=== PATIENT | female | born 1950 | race Caucasian/White ===

== ENCOUNTER → 2016-06-28 | Outpatient (CLI) | payer MEDICARE, OTHER ==
[~2016-06-28] MED LIST: ALPRAZOLAM0.5 MG PO; ASPIR 8181 MG PO; B-121000 MCG PO; CELEBREX200 MG PO; CELEXA40 MG PO; COLACE 100MG C100 MG PO; DEMADEX20 MG PO; DITROPAN 5 MG TA5 MG PO; ELIQUIS2.5 MG PO; FERREX PO; HYDRALAZINE HCL50 MG PO; IRON; ISOSORBIDE MON120 MG PO; KLOR-CON M2020 MEQ PO; LISINOPRIL40 MG PO; MAGNESIUM400 MG PO; METHOCARBAMOL500 MG PO; METOCLOPRAMIDE10 MG PO; METOPROLOL TART50 MG PO; MONTELUKAST SOD10 MG PO; NEURONTIN 300300 MG PO; NITROGLYCERIN0.4 MG SL; NORVASC10 MG PO; OXYCODONE HCL10 MG PO; OXYCODONE HCL15 MG PO; PLAVIX 75 MG TA75 MG PO; RANITIDINE HCL150 MG PO; SYNTHROID88 MCG PO; TEMAZEPAM30 MG PO; TYLENOL ARTHRITIS PO; VIT D PO; ZETIA10 MG PO
== END ==
LOC: HEART 5 09:00
DX: R07.9 Chest pain, unspecified (principal); F17.200 Nicotine dependence, unspecified, uncomplicated; I10 Essential (primary) hypertension; I08.1 Rheumatic disorders of both mitral and tricuspid valves
CPT/HCPCS: 78452; 93306; A9502; J2785

== ENCOUNTER → 2016-07-20 | Outpatient (CLI) | payer MEDICARE, OTHER ==
[2016-07-20 11:24] LABS: HEMOGLOBIN 12.3 gm/dl (12.3-15.3); RED BLOOD COUNT 3.88 M/UL (4.00-5.10)
[2016-07-20 11:39] LABS: BUN/CREATININE RATIO 11 (0-10)
== END ==
LOC: OPSV2 10:30
PROVIDERS: Orthopaedic Surgery
DX: Z01.810 Encounter for preprocedural cardiovascular examination (principal); Z01.812 Encounter for preprocedural laboratory examination; M17.12 Unilateral primary osteoarthritis, left knee; Z88.8 Allergy status to other drugs, medicaments and biological substances
CPT/HCPCS: 36415; 80048; 81001; 85025; 87081; 93005

== ENCOUNTER → 2016-07-27 | Outpatient (CLI) | payer MEDICARE, OTHER | LOC: LAB 11:59 | PROVIDERS: Orthopaedic Surgery | DX: Z01.812 Encounter for preprocedural laboratory examination (principal) | CPT/HCPCS: 36415; 80048; 86850; 86900; 86901 ==

== ENCOUNTER 2016-07-28 06:20 | Day surgery (SDC) | payer MEDICARE, OTHER ==
[~2016-07-28] VITALS: Ht 167.6 cm; Wt 76.7 kg
[2016-07-28] MEDS ORDERED: LISINOPRIL40 MG PO (07:35)
[2016-07-28] MEDS ORDERED: OXYCODONE HCL10 MG PO (07:37)
[2016-07-28] MEDS ORDERED: CELEBREX200 MG PO (07:37)
[2016-07-28] MEDS ORDERED: SYNTHROID88 MCG PO (07:38)
[2016-07-28] MEDS ORDERED: ZETIA10 MG PO (07:39)
[2016-07-28] MEDS ORDERED: METOPROLOL TART50 MG PO (07:40)
[2016-07-28] MEDS ORDERED: HYDRALAZINE HCL50 MG PO (07:44)
[2016-07-28] MEDS ORDERED: KLOR-CON M2020 MEQ PO (07:45)
[2016-07-28] MEDS ORDERED: DEMADEX20 MG PO (07:46)
[2016-07-28] MEDS ORDERED: NORVASC10 MG PO (07:46)
[2016-07-28] MEDS ORDERED: DITROPAN 5 MG TA5 MG PO (07:47)
[2016-07-28] MEDS ORDERED: IRON (07:47)
[2016-07-28] MEDS ORDERED: PLAVIX 75 MG TA75 MG PO (07:48)
[2016-07-28] MEDS ORDERED: ASPIR 8181 MG PO (07:49)
[2016-07-28] MEDS ORDERED: RANITIDINE HCL150 MG PO (07:50)
[2016-07-28] MEDS ORDERED: B-121000 MCG PO (07:51)
[2016-07-28] MEDS ORDERED: TYLENOL ARTHRITIS PO (07:52)
[2016-07-28] MEDS ORDERED: MONTELUKAST SOD10 MG PO (07:52)
[2016-07-28] MEDS ORDERED: METHOCARBAMOL500 MG PO (07:53)
[2016-07-28] MEDS ORDERED: NEURONTIN 300300 MG PO (07:54)
[2016-07-28] MEDS ORDERED: FERREX PO (07:54)
[2016-07-28] MEDS ORDERED: VIT D PO (07:55)
[2016-07-28] MEDS ORDERED: MAGNESIUM400 MG PO (07:55)
[2016-07-28] MEDS ORDERED: ISOSORBIDE MON120 MG PO (07:56)
[2016-07-28] MEDS ORDERED: METOCLOPRAMIDE10 MG PO (07:57)
[2016-07-28] MEDS ORDERED: TEMAZEPAM30 MG PO (07:57)
[2016-07-28] MEDS ORDERED: NITROGLYCERIN0.4 MG SL (07:58)
[2016-07-28] MEDS ORDERED: COLACE 100MG C100 MG PO (07:59)
[2016-07-28] MEDS ORDERED: CELEXA40 MG PO (08:01)
[2016-07-28] MEDS ORDERED: ALPRAZOLAM0.5 MG PO (08:02)
[2016-07-28 19:11] LABS: BUN/CREATININE RATIO 15 (0-10)
[2016-07-29 06:02] LABS: HEMOGLOBIN 11.2 gm/dl (12.3-15.3); RED BLOOD COUNT 3.57 M/UL (4.00-5.10); WHITE BLOOD COUNT 5.9 K/UL (4.5-11.0)
[2016-07-29 06:20] LABS: BUN/CREATININE RATIO 12 (0-10)
[2016-07-30 06:29] LABS: HEMOGLOBIN 10.7 gm/dl (12.3-15.3); RED BLOOD COUNT 3.42 M/UL (4.00-5.10); WHITE BLOOD COUNT 6.2 K/UL (4.5-11.0)
[2016-07-30 06:49] LABS: BUN/CREATININE RATIO 18 (0-10)
[2016-07-30] MEDS ORDERED: OXYCODONE HCL15 MG PO (11:23)
[2016-07-30] MEDS ORDERED: ELIQUIS2.5 MG PO (11:24)
== END 2016-07-30 12:39 | disposition home or self-care (01) ==
LOC: ZOBSOF 06:20 → OR 06:20 → UNDOADMIN 06:20 → M/S 06:20 → EDSTATUS 10:15 → M/S 14:21 → ZOBSOF 14:21 → M/S 07-30 01:46 → OR 07-30 12:39
PROVIDERS: Orthopaedic Surgery; Physician Assistant
PROC: 0SRD0L9 Replacement of Left Knee Joint with Medial Unicondylar Synthetic Substitute, Cemented, Open Approach (ICD-10-PCS; principal; 2016-07-28 09:30)
DX: M17.12 Unilateral primary osteoarthritis, left knee (principal); E87.1 Hypo-osmolality and hyponatremia; I25.10 Atherosclerotic heart disease of native coronary artery without angina pectoris; Z95.810 Presence of automatic (implantable) cardiac defibrillator; M79.7 Fibromyalgia; I10 Essential (primary) hypertension; E03.9 Hypothyroidism, unspecified; E78.5 Hyperlipidemia, unspecified; K21.9 Gastro-esophageal reflux disease without esophagitis; Z90.49 Acquired absence of other specified parts of digestive tract; Z51.89 Encounter for other specified aftercare; Z98.890 Other specified postprocedural states; Z88.8 Allergy status to other drugs, medicaments and biological substances; Z79.899 Other long term (current) drug therapy; Z79.1 Long term (current) use of non-steroidal anti-inflammatories (NSAID); Z79.02 Long term (current) use of antithrombotics/antiplatelets; Z79.82 Long term (current) use of aspirin; F17.210 Nicotine dependence, cigarettes, uncomplicated; Z82.49 Family history of ischemic heart disease and other diseases of the circulatory system
CPT/HCPCS: 36415; 73560; 80048; 85025; 85610; 85730; 97116; 97530; 97535; C1713; C1776; J0670; J0690; J2270; J2795; J3370; J7030; J7120

== ENCOUNTER → 2020-04-06 | Outpatient (CLI) | payer MEDICARE, OTHER ==
[~2020-04-06] MED LIST changes: +CALCIUM-MAGNES1 EAC3 PO; +DEMADEX 10 MG T10 MG PO; -DEMADEX20 MG PO; +ISOSORBIDE MONO60 MG PO; +LEVOTHYROXINE100 MC2 PO; +MELATONIN5 M2 PO; -NEURONTIN 300300 MG PO; +NEURONTIN600 MG PO; +SYSTANE 0.3-0.415 ML EYEBOTH; +SYSTANE ULTRA 010 ML EYEBOTH; +VITAMIN C1000 MG PO; +VITAMIN D PO
== END ==
LOC: US 08:30 → ECHO 08:30 → EXRD 09:26 → NM 10:00
DX: I47.2 Ventricular tachycardia (principal); I10 Essential (primary) hypertension; R41.82 Altered mental status, unspecified; Z87.891 Personal history of nicotine dependence; R94.39 Abnormal result of other cardiovascular function study; R55 Syncope and collapse
CPT/HCPCS: 78452; 93880; A9502; J2785

== ENCOUNTER → 2020-06-11 | Outpatient (CLI) | payer MEDICARE, OTHER | LOC: HEART 5 11:00 | DX: I10 Essential (primary) hypertension (principal); I47.2 Ventricular tachycardia; I42.2 Other hypertrophic cardiomyopathy; I50.30 Unspecified diastolic (congestive) heart failure; I07.1 Rheumatic tricuspid insufficiency; Z95.811 Presence of heart assist device | CPT/HCPCS: 93306 ==

== ENCOUNTER → 2020-06-25 | Outpatient (CLI) | payer MEDICARE, OTHER ==
[2020-06-25 12:07] LABS: HEMOGLOBIN 12.5 gm/dl (12.3-15.3); RED BLOOD COUNT 3.96 M/UL (4.00-5.10); WHITE BLOOD COUNT 4.5 K/UL (4.5-11.0)
[2020-06-25 12:29] LABS: BUN/CREATININE RATIO 13 (0-10)
== END ==
LOC: LAB 11:04
PROVIDERS: Internal Medicine Interventional Cardiology
DX: R94.39 Abnormal result of other cardiovascular function study (principal); I25.119 Atherosclerotic heart disease of native coronary artery with unspecified angina pectoris; R06.02 Shortness of breath; I10 Essential (primary) hypertension; Z01.810 Encounter for preprocedural cardiovascular examination; Z20.822 Contact with and (suspected) exposure to COVID-19
CPT/HCPCS: 36415; 80048; 85025; 85610; 85730; 93005; U0003

== ENCOUNTER → 2020-06-29 | Outpatient (CLI) | payer MEDICARE, OTHER | LOC: CATH 07:09 | DX: I25.119 Atherosclerotic heart disease of native coronary artery with unspecified angina pectoris (principal); I10 Essential (primary) hypertension; E78.5 Hyperlipidemia, unspecified; K58.9 Irritable bowel syndrome, unspecified; I25.2 Old myocardial infarction; K21.9 Gastro-esophageal reflux disease without esophagitis; E07.9 Disorder of thyroid, unspecified; M19.90 Unspecified osteoarthritis, unspecified site; F41.9 Anxiety disorder, unspecified; F32.9 Major depressive disorder, single episode, unspecified; F17.210 Nicotine dependence, cigarettes, uncomplicated; Z95.810 Presence of automatic (implantable) cardiac defibrillator; Z88.8 Allergy status to other drugs, medicaments and biological substances; Z79.82 Long term (current) use of aspirin; Z79.02 Long term (current) use of antithrombotics/antiplatelets; Z79.899 Other long term (current) drug therapy | CPT/HCPCS: 99152; C1769; J1644; J2250; J3010; J7030; Q9967 ==

== ENCOUNTER → 2020-10-29 | Outpatient (CLI) | payer MEDICARE, OTHER ==
[2020-10-29 15:44] LABS: HEMOGLOBIN 12.7 gm/dl (12.3-15.3); RED BLOOD COUNT 3.95 M/UL (4.00-5.10); WHITE BLOOD COUNT 5.2 K/UL (4.5-11.0)
[2020-10-29 16:03] LABS: BUN/CREATININE RATIO 10 (0-10)
== END ==
LOC: LAB 13:01
PROVIDERS: Internal Medicine Interventional Cardiology
DX: I10 Essential (primary) hypertension (principal)
CPT/HCPCS: 36415; 80048; 85027

== ENCOUNTER → 2021-05-20 | Outpatient (CLI) | payer MEDICARE, OTHER ==
[2021-05-21 09:15] LABS: CALCIUM, SERUM 9.5 mg/dL (8.7-10.3); CREATININE, SERUM 0.98 mg/dL (0.57-1.00); POTASSIUM, SERUM 3.8 mmol/L (3.5-5.2)
== END ==
LOC: LAB 15:50
PROVIDERS: Internal Medicine Interventional Cardiology
DX: I25.10 Atherosclerotic heart disease of native coronary artery without angina pectoris (principal); E78.5 Hyperlipidemia, unspecified; E87.1 Hypo-osmolality and hyponatremia; R07.9 Chest pain, unspecified
CPT/HCPCS: 36415; 80048